=== PATIENT | male | born 1975 ===

== ENCOUNTER 2024-12-09 10:59 | Outpatient (CLI) | payer OTHER | END 2024-12-09 17:00 | disposition home or self-care (01) | LOC: Rad HDHVI 10:59 | PROVIDERS: ATTEND Internal Medicine Cardiovascular Disease | DX: I08.1 Rheumatic disorders of both mitral and tricuspid valves (principal); I11.9 Hypertensive heart disease without heart failure | CPT/HCPCS: 93306 ==